=== PATIENT | male | born 1985 | race Caucasian/White ===

== ENCOUNTER 2019-03-28 12:56 | Emergency (ER) | payer SELFPAY ==
[2019-03-28 13:05] VITALS: BP 138/70; PULSE 83; RESP 18; TEMP 36.8; O2SAT 96
--- NOTE | 2019-03-28 13:31 | ED.GENADUL_ITS ---
Discharge Plan Disposition Patient Disposition: HOME Condition: Stable Discharge Details Chief Complaint: Cellulitis Clinical Impression: Folliculitis Primary Care Provider: Brad Arreola ED Provider: Keshav Ramirez Home Meds and New Rx's Prescriptions: New sulfamethoxazole-trimethoprim [Bactrim DS] 800-160 mg tablet 1 tab PO BID 7 Days Qty: 14 RF: 0 Discharge Instructions Instructions: Folliculitis (ED) Additional Instructions: Avoid alcohol while taking Bactrim. Take antibiotic for its full course. As we discussed, culture was sent to lab today. Return for any acute concerns. Medical Decision Making 34-year-old male presents with concern for penile lesion. He has a small area of folliculitis with this scant amount of purulent drainage on the ventral surface of the shaft of his penis. The area was cultured. I will place him on antibiotics. This does not appear to be consistent with STD. He is stable for outpatient management. HPI General Mode of arrival: ambulatory . Date/Time Provider Initiated Documentation: 03/28/19 13:22 . Limitations to Documentation: no limitations . Information obtained by: patient . History of Present Illness 34 year old M presents to the emergency department with the chief complaint of Penile lesion, described as mild, and is localized to the genitals. Patient reports no radiation. Patient started experiencing this day(s) and it has been constant. No relieving factors improve symptom(s), No exacerbating factors reported . Patient notes other (Mild purulence drainage). Patient did receive the following treatments prior to arrival, none Related Data Home Medications Medication Instructions Recorded Confirmed sulfamethoxazole-trimethoprim 1 tab PO BID 7 Days #14 tab 03/28/19 [Bactrim DS] Previous Rx's Medication Instructions Recorded sulfamethoxazole-trimethoprim 1 tab PO BID 7 Days #14 tab 03/28/19 [Bactrim DS] Allergies Allergy/AdvReac Type Severity Reaction Status Date / Time No Known Allergies Allergy Unverified 03/28/19 13:09 General Stated Complaint: Cellulitis MORENO: 3 Review of Systems Narrative: No fever, no change to urine, normal ejaculate, no ulcerations. 6 systems reviewed and otherwise negative [facility] Social History Smoking/Tobacco Use Status: Former Tobacco Use Drug use: Never Exam Narrative Exam Narrative: GEN: awake, alert, oriented 3. Pleasant, well groomed, interactive. HEAD: Normocephalic, atraumatic ENT: Mucous membranes moist, oropharynx unremarkable, External ear exam unremarkable EYES: PERRL, EOMI NECK: Full ROM, no MARY ALICE, no menigismus CHEST/RESP: Nontender, normal respiratory effort ABDOMEN: Soft, nontender, no mass. +Bowel sounds : Ventral surface of shaft of penis with area of folliculitis with scant amount of purulent drainage. No ulcerations. No lesions on the head of the penis. EXT: Full ROM, no edema, no rash Neuro: Grossly normal neurologic exam, conversant, interactive. Psych: Speech fluent, thoughts congruent, affect normal Course Vital Signs Vital signs: Vital Signs Temperature 36.8 C 03/28/19 13:05 Pulse 83 03/28/19 13:05 Respiratory Rate 18 03/28/19 13:05 Blood Pressure 138/70 03/28/19 13:05 Pulse Oximetry 96 03/28/19 13:05 Temperature 36.8 C 03/28/19 13:05 Temperature Source Temporal Artery Scan 03/28/19 13:05 Pulse 83 03/28/19 13:05 Respiratory Rate 18 03/28/19 13:05 Blood Pressure 138/70 03/28/19 13:05 Blood Pressure Position Sitting 03/28/19 13:05 Pulse Oximetry 96 03/28/19 13:05 Oxygen Delivery Method Room Air 03/28/19 13:05 Oxygen Flow Rate 0 03/28/19 13:05 Pain Level 0 03/28/19 13:05
== END 2019-03-28 13:43 | disposition home or self-care (01) ==
PROVIDERS: Emergency Provider Emergency Medicine; PCP Nurse Practitioner Family
DX: L73.9 Follicular disorder, unspecified (principal)
CPT/HCPCS: 99283; 87070

== ENCOUNTER 2019-10-11 09:39 | Emergency (ER) | payer MEDICAID, SELFPAY ==
[2019-10-11 09:45] VITALS: BP 153/77; PULSE 83; TEMP 37.2; O2SAT 97
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
== END 2019-10-11 10:25 | disposition home or self-care (01) ==
PROVIDERS: Emergency Provider Physician Assistant; PCP Nurse Practitioner Family
DX: M54.5 Low back pain (principal); R20.2 Paresthesia of skin; S79.921A Unspecified injury of right thigh, initial encounter; V86.56XA Driver of dirt bike or motor/cross bike injured in nontraffic accident, initial encounter
CPT/HCPCS: 99282; 99283

== ENCOUNTER 2019-10-21 14:34 | Emergency (ER) | payer MEDICAID, SELFPAY ==
[2019-10-21 14:40] VITALS: BP 149/92; PULSE 78; RESP 14; TEMP 36.7; O2SAT 96
--- NOTE | 2019-10-21 15:15 | DI.MRI_ITS ---
EXAM: MR LUMBAR SPINE WO CLINICAL HISTORY: trauma, back pain, left leg numbness. TECHNIQUE: Multiplanar multisequence MRI of the Lumbar spine was performed. COMPARISON: No exams were available for comparison FINDINGS: Bones: The last intervertebral disc space is designated the L5/S1 level for the numbering purpose of this examination. The vertebral body heights are well maintained. Alignment is satisfactory. Hyperi ntense signal the T2 weighted images and hypointense signal on the T1 weighted images involving the e ndplates at L4-L5 on the left predominantly. This probably reflects degenerative changes. Fracture may also be considered. Cord: The conus tip ends at the L1 level. It is of normal size and signal intensity. T12-L1: No disc herniations or bulges are present. No central spinal canal or neural foraminal stenos is. L1-2: No disc herniations or bulges are present. No central spinal canal or neural foraminal stenosis . L2-3: No disc herniations or bulges are present. No central spinal canal or neural foraminal stenosis . L3-4: No disc herniations or bulges are present. No central spinal canal or neural foraminal stenosis . L4-5: Disc desiccation and a mild diffuse disc bulge. Mild narrowing of the central spinal canal. M ild bilateral neural foraminal stenosis. L5-S1: There is a large right paracentral disc herniation with extrusion posterior to the S1 vertebra l body. It causes right lateral recess stenosis and compresses the right S1 nerve root. Moderate ce ntral spinal canal stenosis. Mild bilateral neural foraminal stenosis. Soft tissues: The visualized SI joints and sacrum are well maintained. The paraspinal soft tissues ar e unremarkable. IMPRESSION: 1. Large right paracentral extruded disc herniation at L5-S1. It causes right lateral recess stenosi s and compresses the right S1 nerve root. There is also moderate central spinal canal stenosis. 2. Degenerative changes at L4-5 and L5-S1 resulting in neural foraminal and central spinal canal sten osis. DATA REPOSITORY:
[2019-10-21 15:18] LABS: Bilirubin Negative (Negative); Blood Small (Negative); Clarity Clear (Clear); Glucose Negative (Negative); Ketones Negative (Negative); Leukocyte Esterase Negative (Negative); Nitrite Negative (Negative); Specific Gravity >= 1.030 (1.005-1.025); Urobilinogen 0.2 EU/dL (Up TO 0.2)
--- NOTE | 2019-10-21 15:22 | NUR.NOTE ---
Nursing Note: Post void residual of 60 ml
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
[2019-10-21 15:31] LABS: Bacteria Negative HPF (Negative); C & S Indicated? No; Crystals Negative HPF (Negative); Epithelial Cells Negative HPF (Negative); Mucus Moderate (Negative); WBC Negative HPF (0-5)
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
--- NOTE | 2019-10-21 17:00 | DI.RAD_ITS ---
EXAM: XR PELVIS AP CLINICAL HISTORY: trauma, pelvic pain. TECHNIQUE: 2D digital imaging was performed. COMPARISON: No exams were available for comparison FINDINGS: BONES: No acute fracture is present. No bony destructive lesion is seen. JOINTS: No dislocation present. No joint space narrowing is present. SOFT TISSUE: Normal. IMPRESSION: Unremarkable radiographs of the pelvis. DATA REPOSITORY: RADIATION DOSE DELIVERED:
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
[2019-10-21] MEDS: Ibuprofen 600 MG TAB PO (18:06)
[2019-10-21 18:07] VITALS: BP 135/79; PULSE 60; RESP 18; O2SAT 97
== END 2019-10-21 18:07 | disposition home or self-care (01) ==
PROVIDERS: Student in an Organized Health Care Education/Training Program; Emergency Provider Student in an Organized Health Care Education/Training Program; PCP Nurse Practitioner Family
DX: M51.17 Intervertebral disc disorders with radiculopathy, lumbosacral region (principal); S32.049A Unspecified fracture of fourth lumbar vertebra, initial encounter for closed fracture; S32.059A Unspecified fracture of fifth lumbar vertebra, initial encounter for closed fracture; V86.56XA Driver of dirt bike or motor/cross bike injured in nontraffic accident, initial encounter
CPT/HCPCS: 99284; 72148; 72170; 81003; 81015

== ENCOUNTER 2020-07-28 19:05 | Outpatient (REF) | payer MEDICAID, SELFPAY ==
[2020-07-31 09:36] LABS: Hepatitis B Surface Ag Negative (Negative)
[2020-07-31 10:03] LABS: Hepatitis C Ab w Rflx HCV PCR Negative (Negative)
[2020-07-31 10:27] LABS: HIV-1/2 Ag & Ab Screen Negative (Negative)
[2020-07-31 11:08] LABS: Syphilis Serology (RPR) Negative (Negative)
== END 2020-07-28 19:06 | disposition home or self-care (01) ==
LOC: NCHCN 19:05
PROVIDERS: PCP Nurse Practitioner Family; Visit Provider Family Medicine
DX: Z11.59 Encounter for screening for other viral diseases (principal); Z11.4 Encounter for screening for human immunodeficiency virus [HIV]; Z00.00 Encounter for general adult medical examination without abnormal findings; Z11.3 Encounter for screening for infections with a predominantly sexual mode of transmission
CPT/HCPCS: 86803; 87340; 87389; 86592

== ENCOUNTER 2020-09-16 07:55 | Emergency (ER) | payer MEDICAID, SELFPAY ==
[2020-09-16 08:05] VITALS: BP 121/73; PULSE 82; RESP 15; TEMP 36.6; O2SAT 96
--- NOTE | 2020-09-16 08:25 | W.ED.GENAD ---
Discharge Plan Disposition Patient Disposition: HOME Condition: Stable Discharge Details Clinical Impression: Acute neck pain, Fatigue Primary Care Provider: Brad Arreola ED Provider: Lata Hastings Home Meds and New Rx's Prescriptions: New methocarbamol 750 mg tablet 750 mg PO QID PRN (Reason: muscle spasm) Qty: 14 RF: 0 Discharge Instructions Instructions: Muscle Spasm (ED), Neck Pain (ED) Additional Instructions: Your exam and history is most consistent with muscle spasms of the neck. Please encourage gentle stretching. Heat may also help to loosen these as well massage. You may try topical options such as lidocaine patches. Please continue with Tylenol and/or ibuprofen as needed for discomfort. You may use 600 mg of ibuprofen every 6 hours, 1000 mg of Tylenol every 6 hours for max of 4000 mg daily. Please do not exceed these dosing recommendations. You may try the methocarbamol as prescribed for muscle spasm. Please not drive while taking this medication or drink alcohol. Referral for physical therapy is attached. Please call local physical therapy office to schedule follow-up appointment, number listed at the top of the form. In regard to your fatigue, this is likely associated with you not sleeping secondary to your neck discomfort. As you were bitten by a tick, your tick panel is pending. We will call you with any positive results. Please follow-up with your primary care in the next 1 to 2 weeks for reevaluation. If you develop any new or worsening symptoms please seek care urgently once again. Referrals: Brad Arreola, ASSOCIATE DESIGNER [Primary Care Provider] - Discharge Data Discharge Date/Time-TO BE ENTERED AT DEPARTURE: 09/16/20 09:03 Medical Decision Making Patient is a pleasant 35-year-old male presenting today with chief complaint of neck pain. 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 States the pain is maximal on the right side of the neck radiating towards the right shoulder and down the right the upper back between the shoulder blades. He denies any shortness of breath. No trauma. States that he now has some discomfort on the left side but less so. Reports that pain responded well to Tylenol this morning. Took 1500 mg of Tylenol. I did certified lactation counselor patient on appropriate dosing and encourage safety with medications. On exam, patient appears nontoxic. He has full ROM of his neck. Pain is minimal currently after tylenol dosing. Does feel tight, right side greater than left. No midline tenderness. No stepoff. No neurologic deficit. Patient and I discussed treatment options. I see no indication in history or exam to suggest fracture or instability. Will treat for muscle spasm. Will prescribe muscle relaxant, he is not to drive or drink ETOH when using this medication. He reports he will take this primairly at night as he has had difficulty sleeping and reports increased fatigue with this. Encouraged hydration. encouraged gentle stretching, massage, heat. Will apply Lidocaine patch to help with discomfort. Patient is also questioning when he started to not feel well after not eating multiple meals in a row. States he felt tired, slightly lightheaded. These symptoms completely resolved after eating. I advised more frequent meals. Patient also reports that he was biten by a tick over a month ago, is concerned that he may have contracted Lyme, will send tick and Lyme panel. No rash currently. We will call with any positive results. Patient to f/u with PCP in the next 2 weeks for reevaluation. All of his questions and concerns were addressed, he is in agreement with this plan. HPI General Mode of arrival: ambulatory. Date/Time Provider Initiated Documentation: 09/16/20 07:58. Limitations to Documentation: no limitations. Information obtained by: patient and RN notes reviewed. History of Present Illness 35 year old M presents to the emergency department with the chief complaint of neck tightness, described as mild, with intensity rated at 1. Quality is described as aching (tight), and is localized to the neck. Patient reports radiation to back (upper back). Patient started experiencing this day(s) (5) and it has been intermittent. Medication improves symptom(s), (pain almost completely resolved after tylenol this AM) Movement worsens symptoms (pain maximal with rull ROM but improves with gentle activity) . Patient notes denies chest pain, cough, fever/chills, loss of appetite, nausea/vomiting, rash, shortness of breath and weakness. Patient did receive the following treatments prior to arrival, other (tylenol) Related Data Home Medications Medication Instructions Recorded Confirmed methocarbamol 750 mg PO QID PRN #14 tab 09/16/20 Previous Rx's Medication Instructions Recorded methocarbamol 750 mg PO QID PRN #14 tab 09/16/20 Allergies Allergy/AdvReac Type Severity Reaction Status Date / Time No Known Allergies Allergy Unverified 09/16/20 08:11 General Stated Complaint: Orthopedic MORENO: 3 Review of Systems Constitutional Constitutional: Reports as per HPI, Denies chills, Reports fatigue (reports difficulty sleeping, associates with neck pain), Denies fever(s), Denies headache(s) and Denies weakness ENT Ears, Nose, Mouth, and Throat: Denies headache(s) Cardiovascular Cardiovascular: Reports as per HPI Respiratory Respiratory: Reports as per HPI and Denies cough Musculoskeletal Musculoskeletal: Reports as per HPI and Denies tingling Integumentary/Breasts Skin/Breast: Reports as per HPI, Denies rash and Denies wounds Neurologic Neurologic: Reports as per HPI, Denies headache(s), Denies tingling, Denies paresthesias and Denies weakness Endocrine Endocrine: Reports fatigue (reports difficulty sleeping, associates with neck pain) [facility] Social History Smoking/Tobacco Use Status: Never Smoking risk assessment performed?: Yes Alcohol Intake: current Alcohol Intake frequency: holidays/special occasions only Drug use: Occasionally Substance use type: does not use Details: recently stopped marijuana Do you feel safe at home: Yes Do you feel safe in your relationship?: Yes Exam Const General: cooperative, healthy appearing, comfortable, no acute distress, well developed and well groomed Nutritional Appearance: average body habitus and well nourished Orientation: alert and awake Neck Neck: normal visual inspection, full ROM, no lymphadenopathy, trachea midline, supple and no anterior neck swelling Resp Effort & Inspection: normal respiratory effort, able to speak in complete sentences and no respiratory distress Auscultation: clear to auscultation bilaterally Cardio Rate: regular rate Rhythm: regular rhythm Heart Sounds: S1 normal and S2 normal Back/Spine/Pelvis Cervical Spine: normal cervical lordosis, cervical ROM normal, cervical muscular tenderness, No pain with cervical ROM (full ROM), cervical spasm, No cervical spinal tenderness (no midline tenderness) and No step off deformity Thoracic/Lumbar Spine: thoracic and lumbar spine normal to inspection Skin General skin exam: no rashes or lesions noted Lesions: no lesions Rashes: no rashes Trauma: no lacerations or abrasions Neuro General: patient alert and patient awake Cognition: normal cognition Speech: speech normal Gait: normal gait Motor: muscle tone normal throughout, strength 5/5 throughout, no pronator drift and no movement abnormalities noted Sensory Exam: no sensory deficits noted Psych Appearance: grossly normal and well kempt Mental Status: mental status grossly normal Speech and Movement: speech and movement normal Course Vital Signs Vital signs: Vital Signs Temperature 36.6 C 09/16/20 08:05 Pulse 82 09/16/20 08:05 Respiratory Rate 15 09/16/20 08:05 Blood Pressure 121/73 09/16/20 08:05 Pulse Oximetry 96 09/16/20 08:05 Temperature 36.6 C 09/16/20 08:05 Temperature Source Temporal Artery Scan 09/16/20 08:05 Pulse 82 09/16/20 08:05 Respiratory Rate 15 09/16/20 08:05 Respiratory Effort Non-Labored 09/16/20 08:07 Blood Pressure 121/73 09/16/20 08:05 Pulse Oximetry 96 09/16/20 08:05 Oxygen Delivery Method Room Air 09/16/20 08:05 Oxygen Flow Rate 0 09/16/20 08:05 Pain Level 1 09/16/20 08:05
[2020-09-16] MEDS: Ibuprofen 600 MG TAB PO (08:37)
[2020-09-16] MEDS: Lidocaine 5% Patch 1 PATCH TP (08:38)
[2020-09-16 09:01] VITALS: BP 112/70; PULSE 73; RESP 15; O2SAT 98
[2020-09-18 10:33] LABS: Lyme Ab w Rflx to Lyme Confirm Negative (Negative)
[2020-09-19 16:05] LABS: Anaplasma phagocytophilum Negative (Negative); B. miyamotoi PCR Negative (Negative); Babesia divergens/MO-1 Negative (Negative); Babesia duncani Negative (Negative); Babesia microti Negative (Negative); Ehrlichia chaffeensis Negative (Negative); Ehrlichia ewingii/canis Negative (Negative); Ehrlichia muris eauclairensis Negative (Negative)
== END 2020-09-16 09:03 | disposition home or self-care (01) ==
PROVIDERS: Emergency Provider Physician Assistant; PCP Nurse Practitioner Family
DX: M54.2 Cervicalgia (principal); R53.83 Other fatigue; M62.838 Other muscle spasm; X50.1XXA Overexertion from prolonged static or awkward postures, initial encounter; W57.XXXA Bitten or stung by nonvenomous insect and other nonvenomous arthropods, initial encounter
CPT/HCPCS: 36415; 87798; 99283; 86618

== ENCOUNTER 2020-10-08 11:06 | Emergency (ER) | payer MEDICAID, SELFPAY ==
[2020-10-08 11:30] VITALS: BP 122/61; PULSE 71; RESP 16; TEMP 36.7; O2SAT 100
--- NOTE | 2020-10-08 11:48 | W.ED.GENAD ---
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 The best treatment for this is steroids as prescribed to help reduce inflammation. I would also like for you to keep your eye well hydrated and wear glasses/protective eye wear to help prevent eye injury as we discussed. Please follow up with your primary care in 1-2 weeks for reevaluation. If you develop fevers/chills or other new/worsenging symptoms please seek care urgently once again. Referrals: Brad Arreola, MEDICAL ASSISTANT SECRETARY [Primary Care Provider] - Discharge Data Discharge Date/Time-TO BE ENTERED AT DEPARTURE: 10/08/20 12:32 Medical Decision Making Patient is a pleasant 35 year old male presenting today with c/c of right sided facial weakness. States that he first noted this Friday but that it was more of an altered sensation. Weakness developed Friday. Primary concern is the sensation that right eye does not close completely with blinking. States that he noted mouth droop with smiling in the mirror at that time. Also noted that right side of his forehead was smoother than the other side. Denies weakness elsewhere. No SOB, difficulty swallowing, throat swelling. No trauma. Denies CUEVAS, visual changes, rash, pain, fevers/chills. On exam, patient appears nontoxic. He has slight difference in strength with closure of the right eye. No real droop of the mouth is noted. He does not have the strength of the right side of the forehead compared to contralateral side. There is a lack of creases on the forehead as contralateral side. 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 Discussed this with the patient. i do not see evidence of herpetic infection. Will start on steroids. I do not see need for further evaluation of CVA or central lesion based on exam. Return precautions were discussed. ADvised f/u with PCP. All of his quesitons and concerns were addressed, he is in agreement with this plan. HPI General Mode of arrival: ambulatory. Date/Time Provider Initiated Documentation: 10/08/20 11:15. Limitations to Documentation: no limitations. Information obtained by: patient and RN notes reviewed. History of Present Illness 35 year old M presents to the emergency department with the chief complaint of right sided facial weakness, described as mild, with intensity rated at 1. Quality is described as other (no pain, unusual sensation and weakness), and is localized to the face. Patient reports no radiation. Patient started experiencing this day(s) (initially started 4 days ago but had worsening sxs 2 days ago) and it has been constant. No relieving factors improve symptom(s), No exacerbating factors reported . Patient notes no other symptoms.; denies chest pain, cough, fever/chills, headaches, nausea/vomiting, rash and shortness of breath. Patient did receive the following treatments prior to arrival, none Related Data Home Medications Medication Instructions Recorded Confirmed methocarbamol 750 mg PO QID PRN #14 tab 09/16/20 10/08/20 prednisone 60 mg PO DAILY 5 Days #15 tab 10/08/20 Previous Rx's Medication Instructions Recorded methocarbamol 750 mg PO QID PRN #14 tab 09/16/20 prednisone 60 mg PO DAILY 5 Days #15 tab 10/08/20 Allergies Allergy/AdvReac Type Severity Reaction Status Date / Time No Known Allergies Allergy Unverified 10/08/20 11:34 General Stated Complaint: FacialProb MORENO: 3 Review of Systems Constitutional Constitutional: Reports as per HPI, Denies chills, Denies fatigue, Denies fever(s), Denies frequent falls, Denies headache(s) and Reports weakness (right sided facial weakness) Eyes Eyes: Reports as per HPI, Denies blurry vision, Denies change in vision and Denies eye pain ENT Ears, Nose, Mouth, and Throat: Reports as per HPI, Denies vertigo, Denies headache(s), Denies neck pain and Denies disequilibrium Cardiovascular Cardiovascular: Reports as per HPI, Denies chest pain, Denies lightheadedness, Denies radiating jaw, neck or arm pain, Denies dyspnea and Denies dyspnea on exertion Respiratory Respiratory: Reports as per HPI, Denies chest congestion, Denies cough, Denies dyspnea, Denies dyspnea on exertion, Denies stridor and Denies wheezing Musculoskeletal Musculoskeletal: Reports as per HPI, Denies back pain, Denies myalgias, Denies muscle cramps, Denies neck pain and Denies numbness Integumentary/Breasts Skin/Breast: Reports as per HPI and Denies rash Neurologic Neurologic: Reports as per HPI, Denies abnormal movements, Denies abnormal speech, Denies behavioral changes, Denies confusion, Denies vertigo, Denies frequent falls, Denies headache(s), Reports localized weakness, Denies numbness, Denies sensory deficit, Denies disequilibrium and Reports weakness (right sided facial weakness) Psychiatric Psychiatric: Denies behavioral changes and Denies confusion Endocrine Endocrine: Denies fatigue Allergic/Immunologic Allergic/Immunologic: Denies wheezing [facility] Social History Smoking/Tobacco Use Status: Never Smoking risk assessment performed?: Yes Alcohol Intake: current Alcohol Intake frequency: holidays/special occasions only Drug use: Occasionally Substance use type: marijuana Details: marijuana last night Do you feel safe at home: Yes Do you feel safe in your relationship?: Yes Exam Const General: cooperative, healthy appearing, uncomfortable, no acute distress, well developed and well groomed Nutritional Appearance: average body habitus and well nourished Orientation: alert, awake and oriented x3 HENMT Head: normal to inspection, no palpable skull fracture, normocephalic and atraumatic Ears: hearing grossly normal bilaterally, external ears normal and TM's normal bilaterally General nose exam: external nose normal Face and sinus: abnormal facial exam (slight descrepency in strength of right eye closure), face asymmetric (unable to fully life right eye brow), no crepitus, no ecchymosis, no erythema, no edema and no tenderness Mouth: oral mucosae normal and moist mucous membranes Teeth and gingiva: dentition normal Throat: posterior oropharynx normal and uvula midline Eyes General: appearance normal, both eyes and all related structures Visual Lebron: normal visual lebron by confrontation Alignment and Position: alignment normal Periorbital: periorbital findings normal Eyelids: eyelids normal (as above) Sclera: sclerae normal Cornea: corneas normal Pupils: PERRL EOM: EOM intact bilaterally and No nystagmus Neck Neck: normal visual inspection, full ROM, no lymphadenopathy and no meningeal signs Resp Effort & Inspection: normal respiratory effort, able to speak in complete sentences and no respiratory distress Auscultation: clear to auscultation bilaterally, no rales, no rhonchi and no wheezes Cardio Rate: regular rate Rhythm: regular rhythm Heart Sounds: S1 normal and S2 normal Skin General skin exam: no rashes or lesions noted Neuro General: patient alert, patient awake and patient oriented x3 Cranial Nerves: PERRL, accommodation normal, EOM intact bilaterally, no nystagmus, facial strength abnormal (right sided weakness), able to rotate head bilaterally, able to elevate shoulders bilaterally, no nystagmus and symmetric palate elevation Cognition: normal cognition Speech: speech normal Gait: normal gait Motor: muscle tone normal throughout, strength 5/5 throughout, no pronator drift, no movement abnormalities noted and no fasciculations Sensory Exam: no sensory deficits noted Coordination: [id number] test normal and [id number] test normal Psych Appearance: grossly normal and well kempt Mental Status: mental status grossly normal Speech and Movement: speech and movement normal Course Vital Signs Vital signs: Vital Signs Temperature 36.7 C 10/08/20 11:30 Pulse 71 10/08/20 11:30 Respiratory Rate 16 10/08/20 11:30 Blood Pressure 122/61 10/08/20 11:30 Pulse Oximetry 100 10/08/20 11:30 Temperature 36.7 C 10/08/20 11:30 Temperature Source Skin 10/08/20 11:30 Pulse 71 10/08/20 11:30 Respiratory Rate 16 10/08/20 11:30 Respiratory Effort 10/08/20 11:30 Blood Pressure 122/61 10/08/20 11:30 Blood Pressure Position Sitting 10/08/20 11:30 Pulse Oximetry 100 10/08/20 11:30 Oxygen Delivery Method Room Air 10/08/20 11:30 Oxygen Flow Rate 0 10/08/20 11:30 Pain Level 1 10/08/20 11:30
== END 2020-10-08 12:32 | disposition home or self-care (01) ==
PROVIDERS: Emergency Provider Physician Assistant; PCP Nurse Practitioner Family
DX: G51.0 Bell's palsy (principal)
CPT/HCPCS: 80053; 99283; 83735; 85025; 85610

== ENCOUNTER 2020-10-18 16:58 | Emergency (ER) | payer MEDICAID, SELFPAY ==
[2020-10-18] VITALS (33 sets, daily range): BP systolic 122–156; BP diastolic 58–99; PULSE 0–37; RESP 10–28; TEMP 36.7; O2SAT 94–100
--- NOTE | 2020-10-18 17:00 | RT.EKG_ITS ---
APPROVED REPORT Exam: Resting ECG Reason for Exam: sob Patient Location: E HR:42 bpm ECG Measurements Heart Rate 42 AXIS [place] [id number] P [id number] QRSd 153 QRS -20 QT 548 T 64 QTc 458 Conclusion Atrial fibrillation...? atrial activity Left bundle branch block...QRSd>120, broad/notched R third deg heart block
--- NOTE | 2020-10-18 17:30 | DI.RAD_ITS ---
Exam(s) XR PORTABLE CHEST AP EXAM: XR PORTABLE CHEST AP CLINICAL HISTORY: SOB TECHNIQUE: 2D digital imaging was performed. COMPARISON: No exams were available for comparison FINDINGS: LUNGS: Clear. No pleural abnormality seen. Leads partially obscure the left lower lung field. HEART: Normal. MEDIASTINUM: Normal. BONES: Unremarkable. IMPRESSION: No acute pulmonary findings. DATA REPOSITORY: RADIATION DOSE DELIVERED:
[2020-10-18 17:47] LABS: Abs Immature Grans 0.07 10^3/uL (0.0-0.06); Absolute Basophil Count 0.05 10^3/uL (0.0-0.2); Absolute Eosinophil Count 0.03 10^3/uL (0.0-0.7); Absolute Neutrophil Count 9.57 10^3/uL (1.2-6.7); Basophils % 0.4; Eosinophils % 0.2; HGB 14.1 g/dL (13.5-17.5); Immature Grans % 0.5; Lymphocytes % 16.4; MCH 30.2 pg (27.0-33.0); MCHC 33.6 % (32.0-36.0); MCV 89.9 fL (80-95); MPV 10.4 fL (8.0-11.0); Monocytes % 11.6; Neutrophils % 70.9; Nucleated RBC 0 %; Platelet Count 263 10^3/uL (130-400); RBC 4.67 10^6/uL (4.36-5.78); RDW-SD 43.1 fL
[2020-10-18 17:48] LABS: Absolute Lymphocyte Count 2.21 10^3/uL (1.2-3.4); Absolute Monocyte Count 1.57 10^3/uL (0.1-0.8)
--- NOTE | 2020-10-18 17:49 | ED.GENADUL_ITS ---
Discharge Plan Disposition Patient Disposition: [facility] Condition: Serious Discharge Details Clinical Impression: Third degree heart block Primary Care Provider: Brad Arreola ED Provider: Lata Hastings Home Meds and New Rx's Prescriptions: No Action No Known Home Meds RF: 0 Discharge Data Discharge Date/Time-TO BE ENTERED AT DEPARTURE: 10/18/20 20:52 Medical Decision Making <TJ Nava - Last Filed: 10/18/20 22:59> Patient is a pleasant 35 year old male presenting today with c/c of exertional SOB. He states that he awoke with SOB 2 days ago. States that he has had fatigue. Reports that he attempted to mow the lawn but that he was only able to get about 10ft pushing the mower before he had to stop secondary to the exertional SOB. Patient was seen here recently and treated for [place] palsy. At that time, he had no systemic symptoms. However, he states that after being treated for [place], he noted large circular rash to the LUE and abdomen. This has since subsided. Patient was tested for Lyme in August and was negative. On exam, patient is sitting in texting on his phone. His lungs are clear. He is notably bradycardic with a heart rate of 37. When examining him, his heart rate does drop into the 20s. However, patient remains asymptomatic. He is denying any lightheadedness, shortness of breath or chest pain. I do not appreciate any rash at this time. Patient otherwise appears hemodynamically stable. EKG was obtained. Concern for third-degree heart block. With the description of the rash, I am primarily concerned for Lyme disease or other tickborne illness and will begin treating as such with IV doxycycline. Consulted with Dr. Alex with cardiology. She advised that typically treat with abx and observe until need pacer or they recover their rhythm. They accept in transfer but they do not capacity at this time as the patient is otherwise stable. They advised to call back if he has a syncopal episode. Recommend ceftriaxone instead of the doxycycline. She advised that we could use atropine if needed but to hold off if he is asymptomatic and stable. Labs reviewed. White count of 13.5. BUN elevated at 29. Transaminitis with AST of 87, ALT of 134, alk phos of 122. This is consistent with my concern for tickborne illness. Attempted multiple other hospital to try and find higher level of care where patient reveals that time. However, call back from [facility] and they advised that at this time they are able to the patient in the ED. Dr. Trevizo is accepting ph ysician. FINDINGS: Lungs: Unremarkable. No consolidation. Pleural spaces: Unremarkable. No pleural effusion. No pneumothorax. Heart/Mediastinum: Unremarkable. No cardiomegaly. Bones/joints: Unremarkable. IMPRESSION: No acute findings Patient remains asymptomatic. HR in the 20s. With the risk of deterioration, patient transferred via air to [facility] for further care of his complete heart block. He received doxycycline and ceftriaxone. <Jerrod Larkin MD - Last Filed: 11/02/20 20:16> Patient seen, examined, and discussed with TJ Hastings. EKG was reviewed and interpreted by me: Please see report, third-degree heart block. Patient examined and is mentating well, normotensive with significant bradycardia, heart rate in the 20s to 30s. Given history of recent rash and Wing's palsy and now new onset heart block, concern for disseminated Lyme disease. Will immediately start treatment with doxycycline 100 mg IV. Plan to transfer to tertiary care facility. Labs reviewed and leukocytosis and transaminitis noted. Plan to send tick panel. I agree with treatment plan as discussed/documented with TJ Hastings. HPI <TJ Nava - Last Filed: 10/18/20 22:59> General Mode of arrival: ambulatory . Date/Time Provider Initiated Documentation: 10/18/20 17:26 . Limitations to Documentation: no limitations . Information obtained by: patient and RN notes reviewed . History of Present Illness 35 year old M presents to the emergency department with the chief complaint of SOB, weakness, described as moderate, with intensity rated at 1 (patient denies any pain). and is localized to the chest (SOB). Patient reports no radiation. Patient started experiencing this day(s) (2) and it has been constant. Immobilization improves symptom(s), Movement worsens symptoms . Patient notes rash and shortness of breath; denies chest pain, cough, diaphoresis, fever/chills, loss of appetite, nausea/vomiting, syncope and weakness. Patient did receive the following treatments prior to arrival, none Related Data Home Medications Medication Instructions Recorded Confirmed Unknown [No Known Home Meds] 10/18/20 10/18/20 Allergies Allergy/AdvReac Type Severity Reaction Status Date / Time No Known Allergies Allergy Unverified 10/18/20 17:20 General Stated Complaint: GenMedical MORENO: 2 Review of Systems <TJ Nava - Last Filed: 10/18/20 22:59> Constitutional Constitutional: Reports as per HPI, Denies chills, Reports fatigue, Denies fever(s), Denies headache(s) and Denies poor appetite Eyes Eyes: Denies change in vision ENT Ears, Nose, Mouth, and Throat: Reports dizziness (becomes lightheaded with exertion) and Denies headache(s) Cardiovascular Cardiovascular: Reports as per HPI, Denies chest pain, Denies chest pain at rest, Denies chest pain with activity, Reports lightheadedness, Denies dyspnea and Reports dyspnea on exertion Respiratory Respiratory: Reports as per HPI, Denies chest congestion, Denies cough, Denies pain on inspiration, Denies pain with cough, Denies dyspnea, Reports dyspnea on exertion and Denies wheezing Gastrointestinal Gastrointestinal: Reports as per HPI, Denies abdominal pain, Denies diarrhea, Denies nausea and Denies vomiting Genitourinary Genitourinary: Denies system reviewed and no additional complaints, except as documented (denies change in urinary habits) Musculoskeletal Musculoskeletal: Reports as per HPI and Denies back pain Integumentary/Breasts Skin/Breast: Reports as per HPI and Reports rash Neurologic Neurologic: Reports as per HPI, Reports dizziness (becomes lightheaded with exertion) and Denies headache(s) Endocrine Endocrine: Reports fatigue Allergic/Immunologic Allergic/Immunologic: Denies wheezing PFSH <TJ Nava - Last Filed: 10/18/20 22:59> Social History Smoking/Tobacco Use Status: Never Smoking risk assessment performed?: Yes Alcohol Intake: current Alcohol Intake frequency: holidays/special occasions only Drug use: Occasionally Substance use type: marijuana Details: marijuana last night Do you feel safe at home: Yes Do you feel safe in your relationship?: Yes Exam <TJ Nava - Last Filed: 10/18/20 22:59> Const General: cooperative, healthy appearing, comfortable, no acute distress and well developed Nutritional Appearance: average body habitus and well nourished Orientation: alert, awake and oriented x3 HENMT Head: normal to inspection Ears: hearing grossly normal bilaterally Mouth: moist mucous membranes Chest Chest: normal inspection of the chest, normal palpation of entire chest wall and no crepitus Resp Effort & Inspection: normal respiratory effort, able to speak in complete sentences and no respiratory distress Auscultation: clear to auscultation bilaterally, no rales, no rhonchi and no wheezes Cardio Rate: bradycardic Rhythm: regular rhythm Heart Sounds: S1 normal and S2 normal GI Inspection: normal to inspection, no edema and non-distended Palpation: soft, no hepatosplenomegaly, not firm, no guarding, not rigid and nontender Auscultation: normal bowel sounds Skin General skin exam: no rashes or lesions noted Trauma: no lacerations or abrasions Neuro General: patient alert, patient awake and patient oriented x3 Cognition: normal cognition Speech: speech normal Gait: normal gait Extrem General: normal to inspection, capillary refill normal, no pedal edema, no calf tenderness and normal gait Psych Appearance: grossly normal and well kempt Mental Status: mental status grossly normal Speech and Movement: speech and movement normal Course <TJ Nava - Last Filed: 10/18/20 22:59> Vital Signs Vital signs: Vital Signs Temperature 36.7 C 10/18/20 17:07 Pulse 37 L 10/18/20 17:07 Respiratory Rate 16 10/18/20 17:07 Blood Pressure 134/63 10/18/20 17:07 Pulse Oximetry 99 10/18/20 17:07 Temperature 36.7 C 10/18/20 17:07 Temperature Source Tympanic 10/18/20 17:07 Pulse 37 L 10/18/20 17:07 Respiratory Rate 16 10/18/20 17:07 Respiratory Effort Non-Labored 10/18/20 17:45 Blood Pressure 134/63 10/18/20 17:07 Pulse Oximetry 99 10/18/20 17:07 Oxygen Delivery Method Room Air 10/18/20 17:07 Oxygen Flow Rate 0 10/18/20 17:07 Pain Level 0 10/18/20 17:07 Lab/Test Results Lab/Test Results: Laboratory Tests Range/Units 10/18/20 17:35 WBC (4.4-10.8) 10^3/uL 13.50 H RBC (4.36-5.78) 10^6/uL 4.67 Hgb (13.5-17.5) g/dL 14.1 Hct (40.0-50.0) % 42.0 MCV (80-95) fL 89.9 MCH (27.0-33.0) pg 30.2 MCHC (32.0-36.0) % 33.6 RDW (11.8-14.1) % 13.0 Plt Count (130-400) 10^3/uL 263 MPV (8.0-11.0) fL 10.4 Immature Gran % 0.5 Neutrophils % 70.9 Lymphocytes % 16.4 Monocytes % 11.6 Eosinophils % 0.2 Basophils % 0.4 Nucleated RBC % % 0 Absolute Neutrophils (1.2-6.7) 10^3/uL 9.57 H Absolute Lymphocytes (1.2-3.4) 10^3/uL 2.21 Absolute Monocytes (0.1-0.8) 10^3/uL 1.57 H Absolute Eosinophils (0.0-0.7) 10^3/uL 0.03 Absolute Basophils (0.0-0.2) 10^3/uL 0.05 <Jerrod Larkin MD - Last Filed: 11/02/20 20:16> Critical Care Time Critical Care Time: Yes Total Critical Care Time: 45 Attestation: I spent greater than 45 minutes addressing this patient's immediate life threats. Please see MDM section of note. This time was spent engaged in work directly related to the patient's care, exclusive of separate procedures, and failure to initiate these interventions would have likely resulted in clinically significant or life threatening deterioration in the patient's condition.
[2020-10-18] MEDS: DOXYCYCLINE 100 MG in Normal Saline 100 ML IVPB (17:58)
[2020-10-18] MEDS: Normal Saline Flush 10 ML SYR IVP (17:59)
[2020-10-18 18:05] LABS: Prothrombin Time 10.1 sec (9.3-11.0)
[2020-10-18 18:09] LABS: ALT 134 U/L (16-63); AST 87 U/L (15-37); Albumin 3.6 g/dL (3.4-5.0); Alkaline Phosphatase 122 U/L (46-116); Anion Gap 10.3 mmol/L (3-11); BUN 29 mg/dL (7-18); Bilirubin, Total 0.2 mg/dL (0.2-1.0); CO2 27.7 mmol/L (21.0-32.0); CREATININE 1.2 mg/dL (0.70-1.30); Calcium 9.1 mg/dL (8.5-10.1); Chloride 102 mmol/L (98-107); Glucose 99 mg/dL (74-106); Potassium 4.7 mmol/L (3.5-5.1); Sodium 140 mmol/L (136-145); Total Protein 7.6 g/dL (6.4-8.2)
[2020-10-18 18:10] LABS: Troponin I < 0.05 ng/mL (<0.06)
[2020-10-18 18:11] LABS: Source Nasal/Nares
--- NOTE | 2020-10-18 18:48 | DI.VRAD_ITS ---
PROCEDURE INFORMATION: Exam: XR Chest Exam date and time: 10/18/2020 5:33 PM Age: 35 years old Clinical indication: Other: SOB TECHNIQUE: Imaging protocol: XR of the chest. Views: 1 view. COMPARISON: No relevant prior studies available. FINDINGS: Lungs: Unremarkable. No consolidation. Pleural spaces: Unremarkable. No pleural effusion. No pneumothorax. Heart/Mediastinum: Unremarkable. No cardiomegaly. Bones/joints: Unremarkable. IMPRESSION: No acute findings. Dictated and Authenticated by: Taya Bae MD. Ordering:WAYNE Guido MD
[2020-10-18 19:13] LABS: COVID-19 PCR Negative (Negative)
[2020-10-18 19:21] LABS: TSH (W/Ref FT4) 1.91 uIU/mL (0.36-3.74)
[2020-10-18] MEDS: cefTRIAXone 2 GM/50 ML BAG IVPB (20:08)
[2020-10-20 12:18] LABS: Lyme Ab w Rflx to Lyme Confirm Positive (Negative)
[2020-10-20 14:08] LABS: Lyme IgG Ab Positive (Negative); Lyme IgM Ab Positive (Negative)
[2020-10-20 21:39] LABS: Anaplasma phagocytophilum Negative (Negative); B. miyamotoi PCR Negative (Negative); Babesia divergens/MO-1 Negative (Negative); Babesia duncani Negative (Negative); Babesia microti Negative (Negative); Ehrlichia chaffeensis Negative (Negative); Ehrlichia ewingii/canis Negative (Negative); Ehrlichia muris eauclairensis Negative (Negative)
== END 2020-10-18 20:52 ==
PROVIDERS: Emergency Provider Physician Assistant; PCP Nurse Practitioner Family
DX: I44.2 Atrioventricular block, complete (principal); R00.1 Bradycardia, unspecified; A69.20 Lyme disease, unspecified; R74.01 Elevation of levels of liver transaminase levels; R94.4 Abnormal results of kidney function studies; Z20.822 Contact with and (suspected) exposure to COVID-19; Z03.818 Encounter for observation for suspected exposure to other biological agents ruled out
CPT/HCPCS: 36415; 80053; 86617; 87635; 87798; 93005; 96365; 99285; 71045; 83735; 84443; 84484; 85025; 85610; 85730; 86618; 93010

== ENCOUNTER 2022-06-24 10:14 | Emergency (ER) | payer MEDICAID, SELFPAY ==
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
[2022-06-24 10:20] VITALS: BP 126/78; PULSE 80; RESP 20; TEMP 36.8; O2SAT 98
--- NOTE | 2022-06-24 10:30 | DI.RAD_ITS ---
Exam(s) XR WRIST LT COMPLETE EXAM: XR WRIST LT COMPLETE CLINICAL HISTORY: Radial left wrist pain. TECHNIQUE: 2D digital imaging was performed. Three views. COMPARISON: No exams were available for comparison FINDINGS: BONES: No acute fracture is present. No bony destructive lesion is seen. JOINTS: The carpal bones are normally aligned. SOFT TISSUE: Normal. IMPRESSION: Unremarkable radiographs of the left wrist. DATA REPOSITORY: RADIATION DOSE DELIVERED:
== END 2022-06-24 11:55 | disposition home or self-care (01) ==
PROVIDERS: Emergency Provider Emergency Medicine
DX: M25.532 Pain in left wrist (principal); S50.812A Abrasion of left forearm, initial encounter; V86.56XA Driver of dirt bike or motor/cross bike injured in nontraffic accident, initial encounter
CPT/HCPCS: 90471; 99284; 73110; 99283